=== PATIENT | female | born 1965 ===

== ENCOUNTER 2021-08-30 11:00 | Inpatient (IN) | payer OTHER ==
[~2021-08-30] VITALS: Ht 160 cm; Wt 81.6 kg
[2021-08-30] MEDS ORDERED: D3 + K2 DOTS 11 EACH PO (14:52)
[2021-08-30] MEDS ORDERED: PRILOSEC10 MG PO (14:52)
[2021-08-30] MEDS ORDERED: TANDEM DUAL AC106 MG PO (14:53)
== END 2021-09-07 10:23 | disposition home or self-care (01) | DRG 330 ==
LOC: SURG 09-04 07:00 → O/R 09-04 14:09 → SURH 09-04 14:09
PROVIDERS: ADMIT Colon & Rectal Surgery; ATTEND Colon & Rectal Surgery
PROC: 0DBP4ZZ Excision of Rectum, Percutaneous Endoscopic Approach (ICD-10-PCS; 2021-09-04)
PROC: 0DTN4ZZ Resection of Sigmoid Colon, Percutaneous Endoscopic Approach (ICD-10-PCS; principal; 2021-09-04 07:00)
DX: K57.20 Diverticulitis of large intestine with perforation and abscess without bleeding (principal); K92.1 Melena; D64.9 Anemia, unspecified